=== PATIENT | male | born 1955 | race Caucasian/White ===

== ENCOUNTER 2018-04-22 08:43 | Inpatient (IN) | payer OTHER ==
[2018-04-22] MEDS ORDERED: NS 0.9% 1000 ML** 1,000 ML IV ONE (08:50)
[2018-04-22] MEDS ORDERED: Aspirin 81 mg CHEW TAB* 81 MG TAB.CHEW PO ONE (08:50)
--- NOTE | 2018-04-22 09:00 | ED ---
HPI Chest Pain - HPI Summary HPI Summary: A 63 y/o M presents to ED with c/o constant L-anterior CP onset 04/20/18 at 0030 that woke him from sleep. The pain is described as sharp, tight, pressured, crushing. It radiates to his neck, L shoulder and down the LUE. The pain is currently 8 out of 10 at bedside, but worsens at times. He took two Advil MANAGER AEROSPACE. He states the CP feels like a pulled muscle but he denies doing so. He denies exerting himself during the day of onset. Aggravating factor: position. He states exertion does not aggravate the pain. Denies diaphoresis, SOB, palpitations, n/v/d, urinary and bowel changes at bedside. No PMHx of DM, HTN, GERD, COPD, asthma. No family hx of [place], cardiac issues. Pt is a smoker. Denies recreational drug use. He denies medication other than Viagra, which he last took a week ago. At 0905: Dr. Starr, cardiology, present at bedside. - History of Current Complaint Chief Complaint: EDChestPainROMI Time Seen by Provider: 04/22/18 08:50 Hx Obtained From: Patient Onset/Duration: Started Days Ago, Atraumatic, Still Present Time of Onset: 00:30 - on 04/20/18 Timing: Constant Initial Severity: Moderate Current Severity: Severe Pain Intensity: 8 Pain Scale Used: 0-10 Numeric Chest Pain Location: Left Anterior Chest Pain Radiates: Yes Chest Pain Radiates To:: Shoulder - L, Arm - L, Neck Character: Crushing, Pressure/Squeezing, Sharp/Stabbing, Tightness Aggravating Factor(s): Position, Other: - exertion does not aggravate the CP. Associated Signs and Symptoms: Negative: Shortness of Breath, Diaphoresis, Nausea, Palpitations, Vomiting, Other: - neg: diarrhea, urinary and bowel changes - Allergy/Home Medications Allergies/Adverse Reactions: Allergies Allergy/AdvReac Type Severity Reaction Status Date / Time No Known Allergies Allergy Verified 04/22/18 08:49 Home Medications: Home Medications Sildenafil Citrate 100 mg PO DAILY PRN 04/22/18 [History Confirmed 04/22/18] PMH/Surg Hx/FS Hx/Imm Hx Previously Healthy: Yes Endocrine/Hematology History: Denies: Hx Diabetes Cardiovascular History: Denies: Hx Hypertension Respiratory History: Denies: Hx Asthma, Hx Chronic Obstructive Pulmonary Disease (COPD) GI History: Denies: Hx Gastroesophageal Reflux Disease Infectious Disease History: No Infectious Disease History: Denies: Traveled Outside the US in Last 30 Days - Family History Known Family History: Negative: Cardiac Disease - no MIs in family Family History: Parents in 80s. - Social History Occupation: Employed Full-time Lives: With Family Hx Tobacco Use: Yes Review of Systems Negative: Skin Diaphoresis Positive: Chest Pain. Negative: Palpitations Negative: Shortness Of Breath Negative: Vomiting, Diarrhea, Nausea, Other - neg: bowel changes Negative: dysuria, hematuria All Other Systems Reviewed And Are Negative: Yes Physical Exam - Summary Physical Exam Summary: Appearance: Well appearing, mild distress, smells of smoke Skin: warm, dry, reflects adequate perfusion Head/face: normal Eyes: EOMI, EVERARDO ENT: mucous membranes moist Neck: supple, non-tender Respiratory: CTA, breath sounds present Cardiovascular: RRR, pulses symmetrical Abdomen: non-tender, soft Bowel Sounds: present Musculoskeletal: normal, strength/ROM intact, no edema Neuro: normal, sensory motor intact, A&Ox3 Triage Information Reviewed: Yes Vital Signs On Initial Exam: Initial Vitals Temp Pulse Resp BP Pulse Ox 97.6 F 90 16 136/92 96 04/22/18 08:46 04/22/18 08:46 04/22/18 08:46 04/22/18 08:46 04/22/18 08:46 Vital Signs Reviewed: Yes Diagnostics - Vital Signs Vital Signs Temp Pulse Resp BP Pulse Ox 04/22/18 08:46 97.6 F 90 16 136/92 96 - Laboratory Result Diagrams: 04/22/18 09:05 04/22/18 09:05 Lab Statement: Any lab studies that have been ordered have been reviewed, and results considered in the medical decision making process. - Radiology CXR Radiology Interpretation Completed By: Radiologist Summary of Radiographic Findings: IMPRESSION: No active cardiopulmonary dz is noted. ED provider has reviewed this report. - EKG 0857 Cardiac Rate: NL - 80 bpm EKG Rhythm: Sinus Rhythm Summary of EKG Findings: 1mm ST elevation in lead I, II, and V6 with J point elevation. No reciprocal changes. STEMI. Chest Pain Course/Dx - Course Course Of Treatment: Nurse's notes reviewed. Patient with crushing chest pain and ST changes on EKG. STEMI alert called on arrival. Patient given aspirin and Berlinta. Cardiology came to the ER. Chest x-ray negative. Patient taken emergently to Administrative Services Director. - Chest Pain Differential Diagnosis/HQI/PQRI: Acute [place], ACS, Angina, CHF, Chest Wall, GI Disease, Pulmonary Edema, Pulmonary Embolism - Diagnoses Provider Diagnoses: STEMI (ST elevation myocardial infarction) During the Visit The Following Alert/Code Occurred: STEMI - Called at 09:03 - Provider Notifications Discussed Care Of Patient With: Tennille Arguello - cardio Time Discussed With Above Provider: 09:08 Instructed by Provider To: Other - Send to cardiac cath lab radiology technologist - Critical Care Time Critical Care Time: 30-74 min - 30 minutes. CCT is EXCLUSIVE of separately billable procedures. Discharge - Sign-Out/Discharge Documenting (check all that apply): Patient Departure - CUSTOMER EXPERIENCE ANALYST All imaging exams completed and their final reports reviewed: Yes - Discharge Plan Condition: Guarded Disposition: ADMITTED TO [facility] - Billing Disposition and Condition Condition: GUARDED Disposition: Admitted to [facility] - Attestation Statements Document Initiated by Scribe: Yes Documenting Scribe: Kashif Ruff Provider For Whom Scribe is Documenting (Include Credential): Dr. Guille Mcnulty MD Scribe Attestation: Kashif Chavez scribed for Dr. Guille Mcnulty MD on 04/22/18 at 1104. Scribe Documentation Reviewed: Yes Provider Attestation: The documentation as recorded by the Kashif mckeon accurately reflects the service I personally performed and the decisions made by , Dr. Guille Mcnulty MD Status of Scribe Document: Viewed
[2018-04-22] MEDS ORDERED: Aspirin 81 mg CHEW TAB* 81 MG TAB.CHEW ONE (09:04)
[2018-04-22] MEDS ORDERED: Heparin VIAL(*) 5000 UNITS/ML VIAL (FIVE THOUSAND) ONE (09:05)
[2018-04-22] MEDS ORDERED: Ticagrelor* 90 MG TAB PO ONE ×2 (09:05→09:06)
[2018-04-22] MEDS ORDERED: Heparin for STEMI(*) 5,000 UNITS/ML 1 ML VIAL IV ONE (09:06)
[2018-04-22] MEDS ORDERED: Nitroglycerin TAB 0.4 MG* 0.4 MG TAB SL ONE (09:06)
[2018-04-22] MEDS ORDERED: nitroGLYCERIN DRIP* 25,000 MCG in PREMIX* 0 ML IV ONE (09:06)
[2018-04-22] MEDS ORDERED: Heparin(*) 1000 UNIT/ML 10 ML VIAL CATH LAB IV ONE (09:07)
[2018-04-22] MEDS ORDERED: Heparin 2 UNITS/ML IVPREMIX* 3,000 ML IV ONE (09:07)
[2018-04-22] MEDS ORDERED: Lidocaine 1% INJ* 10 MG/ML 30 ML SDV ONE (09:07)
[2018-04-22] MEDS ORDERED: VERAPAMIL 2.5 MG/ML 2 ML VIAL ** 5 mg/2 ml ONE (09:07)
[2018-04-22] MEDS ORDERED: Iohexol 350 (CONTRAST) 200 ML MDV IV ONE ×3 (09:07→10:06)
[2018-04-22] MEDS ORDERED: Midazolam* 1 MG/ML 10 ML VIAL (10 MG) ONE ×2 (09:07→09:23)
[2018-04-22] MEDS ORDERED: nitroGLYCERIN DRIP* 25,000 MCG/250 ML BTL ONE (09:07)
[2018-04-22] MEDS ORDERED: fentaNYL* 50 MCG/ML 2 ML VIAL (100 MCG VIAL) ONE (09:07)
[2018-04-22 09:16] LABS: ABS Basophils 0 10^3/ul (0-0.2); ABS Eosinophils 0.1 10^3/ul (0-0.6); ABS Lymphocytes 4.8 10^3/ul (1.0-4.8); ABS Monocytes 1.1 10^3/ul (0-0.8); ABS Neutrophils 6.3 10^3/ul (1.5-7.7); ABS Nucleated RBC 0 10^3/ul; Eosinophil % 0.5 %; Hematocrit 48 % (42-52); Hemoglobin 16.3 g/dl (14.0-18.0); Lymphocyte % 39.1 %; Mean Corpuscular HGB Conc 34 g/dl (31-36); Mean Corpuscular Hemoglobin 31 pg (27-31); Mean Corpuscular Volume 91 fL (80-94); Mean Platelet Volume 8.7 fL (7.4-10.4); Nucleated Red Blood Cells % 0.3; Platelet Count 176 10^3/ul (150-450); Red Cell Distribution Width 14 % (10.5-15); White Blood Count 12.3 10^3/ul (3.5-10.8)
[2018-04-22] MEDS ORDERED: Morphine INJ* 10 MG/ML 1 ML CARPUJECT ONE (09:23)
[2018-04-22 09:35] LABS: Activated Partial Thrombo Time 31.2 seconds (26.0-36.3); Albumin 4.2 g/dL (3.2-5.2); Albumin/Globulin Ratio 1.4 (1-3); BUN/Creatinine Ratio 17.1 (8-20); Calcium 9.6 mg/dL (8.6-10.3); EGFR African American 126.2 (>60); EGFR Non-African American 104.3 (>60); Globulin 3.1 g/dL (2-4); INR 1.02 (0.77-1.02); Potassium 4.2 mmol/L (3.5-5.0); Total Bilirubin 1.1 mg/dL (0.2-1.0); Total Protein 7.3 g/dL (6.4-8.9)
[2018-04-22 09:37] LABS: Troponin I 0.01 ng/mL (<0.04)
--- NOTE | 2018-04-22 10:55 | HP ---
CC: Dr. Arguello * ADMISSION HISTORY AND PHYSICAL: DATE OF ADMISSION: 04/22/18. INDICATIONS FOR ADMISSION: STEMI. HISTORY OF PRESENT ILLNESS: The patient is a 63-year-old gentleman with a very little past medical history who has been having chest pain since last night. The patient states he described it is a heaviness and his chest occasionally radiating up into a jaw and shoulder, had been on and off all night long. The patient came to the emergency room this morning. In the emergency room, he had an EKG, which demonstrated ST segment elevations in leads I and aVL with OR depressions. No reciprocal changes. His chest pain, however, is quite typical. PAST MEDICAL HISTORY: Unremarkable. PAST SURGICAL HISTORY: None. OUTPATIENT MEDICATIONS: Viagra. ALLERGIES: None. FAMILY HISTORY: Family history was not obtained as it was an emergency. SOCIAL HISTORY: He is . He smokes cigarettes, I am not exactly sure of how much. He denies any regular exercise. PHYSICAL EXAMINATION VITAL SIGNS: On physical exam, height is 5 feet 9 inches, weight 220 pounds, blood pressure 143/99, temperature 97.6, heart rate is 82, respiratory rate is 16. HEENT: Sclerae are anicteric. Oropharynx is pink without erythema. Carotids are 2+ without bruits. NECK: JVD is normal. Thyroid is normal. LUNGS: Clear to auscultation bilaterally. There is no dullness to percussion. CARDIAC EXAM: S1, S2 without any murmurs, rubs or gallops. ABDOMEN: Obese, soft, nontender, nondistended with normoactive bowel sounds. EXTREMITIES: Show no edema. He has 2+ pulses throughout. NEURO: The patient is awake and alert and oriented. He moves all 4 extremities equally. DIAGNOSTIC STUDIES/LAB DATA: CBC within normal limits. Chemistries are still pending. EKG as described above. Chest x-ray is normal. There is no mediastinal widening. There is no infiltrates. IMPRESSION: This is a 63-year-old gentleman with a very little past medical history, who came to the emergency room with typical anginal type symptoms. His EKG shows ST segment elevations in leads I and aVL. He does have some degree of OR depression. There are no reciprocal changes. PLAN/RECOMMENDATIONS: Given the patients' age, history of smoking, the patient is very likely to have coronary artery disease. Recommendation is that the patient to undergo cardiac catheterization. The patient was given 4000 units of heparin in the emergency room and transported up to the cardiac landscaping and groundskeeping laborer. The patient did get an aspirin in the emergency room. Further recommendations pending the results of his cardiac catheterization. [id number]/[facility] #: [id number] MTDD
[2018-04-22] MEDS ORDERED: Nitroglycerin TAB 0.4 MG* 0.4 MG TAB SL PRN (11:17)
[2018-04-22] MEDS ORDERED: Acetaminophen TAB* 325 MG PO PRN (11:17)
[2018-04-22] MEDS ORDERED: NS 0.9% 1000 ML** 400 ML IV SCH (11:30)
[2018-04-22 14:06] LABS: HDL Cholesterol 43.6 mg/dL
[2018-04-22 14:22] LABS: TSH (Thyroid Stimulating Horm) 1.52 mcIU/mL (0.34-5.60)
[2018-04-22] MEDS: Metoprolol Tartrate TAB* 25 MG PO SCH ×2 (14:28→20:05)
[2018-04-22] MEDS: Atorvastatin* 80 MG TAB PO SCH (17:31)
[2018-04-22] MEDS ORDERED: oxyCODONE/Acetamin 5/325 MG* TAB PO PRN (17:41)
[2018-04-22] MEDS: Ticagrelor* 90 MG TAB PO SCH (20:05)
[2018-04-23] MEDS: Metoprolol Tartrate TAB* 25 MG PO SCH (03:53)
[2018-04-23 05:36] LABS: BUN/Creatinine Ratio 17.1 (8-20); Blood Urea Nitrogen 13 mg/dL (6-24); CO2 Carbon Dioxide 24 mmol/L (22-32); Calcium 9.1 mg/dL (8.6-10.3); Chloride 105 mmol/L (101-111); EGFR African American 126.2 (>60); EGFR Non-African American 104.3 (>60); Glucose 107 mg/dL (70-100); Sodium 135 mmol/L (135-145)
[2018-04-23 05:41] LABS: Anion Gap 6 mmol/L (2-11)
[2018-04-23] MEDS: Ticagrelor* 90 MG TAB PO SCH ×2 (08:26→22:10)
[2018-04-23] MEDS: Aspirin 81 mg CHEW TAB* 81 MG TAB.CHEW PO SCH (08:26)
[2018-04-23 10:24] LABS: Troponin I 0.24 ng/mL (<0.04)
[2018-04-23] MEDS: Atorvastatin* 80 MG TAB PO SCH (16:33)
--- NOTE | 2018-04-23 21:22 | CATH ---
CC: Dr. Escalante; Dr. Tennille Arguello * STENT REPORT: DATE OF PROCEDURE: 04/22/18 - ROOM #444 PRIMARY CARE PHYSICIAN: Dr. Escalante at [facility]. PROCEDURES: Right radial artery access; bilateral selective coronary cineangiography; left heart catheterization; left ventriculography; stent placement, RPDA, 2.0 x 12 Resolute [place] drug-eluting stent. HISTORY: A 63-year-old male presenting with acute ST-elevation infarct with injury current in I and aVL as well as inferiorly. Symptoms are somewhat atypical with pleural-pericardial component, he has had chest pain intermittently for more than 24 hours, first troponin is not elevated. The EKG changes are new. PROCEDURE ACCESS: Right radial artery sheath 6F Slender. MEDICATIONS: 1. Subcu lidocaine. 2. IV Versed. 3. IV fentanyl. 4. Nitroglycerin 400 mcg IC. 5. Radial cocktail with nitroglycerin 300 mcg, verapamil 3 mg. 6. Heparin 9000 units IV. DIAGNOSTIC CATHETERS: 5FL4, 5F TIG4, 5F pigtail. HEMODYNAMICS: AO 108/71, LV 100/14, no aortic valve gradient on pullback. ANGIOGRAPHY: RCA. The RCA is large, dominant, with scattered mild luminal irregularity. The PDA is large, in its proximal third, the PDA continuation has a 99% stenosis with distal SHANNA 2 flow. More distally, the RCA supplies 2 large posterolaterals without stenosis. Left main. The left main is very large, has no stenosis. LAD. The LAD is large, extends past the apex, has scattered proximal luminal irregularity without significant stenosis, it supplies several small diagonals. There is a transeptal collateral to the distal half of the RPDA. Circumflex. The circumflex is large, not dominant with a large bifurcated marginal, ends with a small posterolateral, the circumflex has no significant stenosis. LV gram: There is very localized mid inferior wall mild hypokinesis, estimated LVEF normal at 55% to 60%. RPDA REVASCULARIZATION: Guide 6FR4, wire 14 BMW, 14 PT Graphix. It was difficult to cross the occlusion point without balloon support, I then placed a long PT Graphix wire in the PDA to allow an end-hole catheter for distal injection to ensure intraluminal position before the stent was deployed. A 2 x 12 Resolute [place] drug-eluting stent was deployed in the RPDA, 12 atmospheres 60 seconds. Predilatation was required several times before the stent could be positioned. With stent placement, chest pain markedly improved, as did ST elevation. CONCLUSION: 1. Single-vessel disease RPDA with high-grade PDA stenosis with epsd-ba-yyxoa collaterals, with stuttering infarct pattern, inferior and high lateral injury current, successful revascularization with MARCIN. 2. Normal LV systolic function with mild regional wall motion abnormality. 3. Normal left-sided hemodynamics. 4. Successful right radial artery access. [id number]/[facility] #: [id number] [facility]
[2018-04-23] MEDS: Metoprolol Tartrate TAB* 50 mg PO SCH (22:10)
[2018-04-24 07:58] VITALS: BP 116/67
[2018-04-24] MEDS: Ticagrelor* 90 MG TAB PO SCH (08:11)
[2018-04-24] MEDS: Aspirin 81 mg CHEW TAB* 81 MG TAB.CHEW PO SCH (08:11)
[2018-04-24] MEDS: Metoprolol Tartrate TAB* 50 mg PO SCH (08:11)
--- NOTE | 2018-04-24 12:18 | DS ---
CC: Dr. Escalante in Telephone; Dr. Tennille Arguello DISCHARGE SUMMARY: DATE OF ADMISSION: 04/22/18 DATE OF DISCHARGE: 04/24/18 PRIMARY CARE PHYSICIAN: Dr. Escalante. DISCHARGE DIAGNOSES: 1. Acute inferolateral ST-elevation infarct. 2. Tobacco use. 3. Dyslipidemia. CONDITION ON DISCHARGE: Stable. PROCEDURES: Cardiac cath; stent placement, RPDA via the right radial 2.0 x 12 mm Resolute [place] drug- eluting stent; telemetry. DISCHARGE MEDICATIONS: 1. Aspirin 81 mg daily. 2. Lipitor 80 mg daily. 3. Metoprolol 50 mg b.i.d. 4. Nicotine patch 14 mg q.24 hours. 5. Nitroglycerin 0.4 sublingual p.r.n. 6. Brilinta 90 b.i.d. or equivalent for a minimum of 1 year without interruption. ACTIVITY: No strenuous exertion, to minimize right hand lifting 20 pounds for 3 days, wound care and shower only for 3 days. FOLLOWUP: Follow up with Dr. Starr next week for wrist check and with Dr. Escalante as before. HISTORY: See the H and P. DIAGNOSTIC STUDIES/LAB DATA: Post PCI BMP remain stable with a creatinine of 0.76. His troponin peak ed at 0.33 on the with subsequent decrease. His EKG demonstrated resolution of the injury curre nt in the inferior and high lateral leads. HOSPITAL COURSE: He presented with an ST-elevation infarct with somewhat atypical symptoms with stut tering, pleural-pericardial chest pain for at least 24 hours, first troponin was negative. Subsequen t troponin peaked at 0.33 consistent with a very small infarct. He underwent emergent catheterizatio n which demonstrated a culprit RPDA near occlusion with left to right collaterals which was revascula rized and stented with 2 mm drug-eluting stent with good angiographic result. Post revascularization, he had no right hand issues, has not had recurrence of chest pain, heart failure symptoms or arrhyth mias. He is ambulatory, has received full discharge instructions. There was some question of insura txe coverage for Brilinta, hence, we gave him a 1 month supply at discharge, he will discuss with Dr. Starr next week and with Dr. Escalante; continuation of Brilinta or switching to Plavix depending on hi s insurance coverage. He understands the importance of uninterrupted dual antiplatelet therapy for a minimum of 12 months. He was advised to resume work next Sunday, received full discharge instructio martell. [id number]/[facility] #: [id number]
[2018-04-25] MEDS ORDERED: Nicotine PATCH 14 MG/24 HR* PATCH TRANSDERM SCH (09:00)
[2018-04-25] MEDS ORDERED: Nicotine Patch Removal NOTE PATCH OFF SCH (21:00)
--- NOTE | 2018-04-30 19:47 | HP ---
HISTORY AND PHYSICAL: DATE OF ADMISSION: ADDENDUM: REVIEW OF SYSTEMS: The patient denies any fevers or chills. He denies any changes in bowel or bladder habits. Negative in change in weight. Other 12- point review is unremarkable. [id number]/[facility] #: [id number] MTDD
== END 2018-04-24 12:10 | disposition home or self-care (01) | DRG 247 ==
LOC: ED 08:43 → CHICATH 09:12 → ICU 11:23 → MEDTELE 04-23 11:05
PROVIDERS: ADMIT Internal Medicine Cardiovascular Disease; ATTEND Internal Medicine Cardiovascular Disease
PROC: 027034Z Dilation of Coronary Artery, One Artery with Drug-eluting Intraluminal Device, Percutaneous Approach (ICD-10-PCS; 2018-04-22)
PROC: B2111ZZ Fluoroscopy of Multiple Coronary Arteries using Low Osmolar Contrast (ICD-10-PCS; 2018-04-22)
PROC: B2151ZZ Fluoroscopy of Left Heart using Low Osmolar Contrast (ICD-10-PCS; 2018-04-22)
PROC: 4A023N7 Measurement of Cardiac Sampling and Pressure, Left Heart, Percutaneous Approach (ICD-10-PCS; principal; 2018-04-22 09:00)
DX: I21.19 ST elevation (STEMI) myocardial infarction involving other coronary artery of inferior wall (principal); E78.5 Hyperlipidemia, unspecified; F17.210 Nicotine dependence, cigarettes, uncomplicated; I25.10 Atherosclerotic heart disease of native coronary artery without angina pectoris; Z79.82 Long term (current) use of aspirin
CPT/HCPCS: 36415; 71045; 80048; 80053; 80061; 83605; 83721; 83880; 84443; 84484; 85025; 85347; 85379; 85610; 85730; 87641; 93005; 99285; 99406; A9270-GY; C1725; C1769; C1874; C1887; C9606-RC; J1644; J2250; J2270; J3010

== ENCOUNTER 2019-02-18 13:18 | Emergency (ER) | payer OTHER ==
--- NOTE | 2019-02-18 14:16 | ED ---
HPI Chest Pain - HPI Summary HPI Summary: Patient is a 64 y/o M presenting to the ED for a chief complaint of chest pain that began at 04:00 on 02/18/19. Patient states the chest pain is left-sided, radiating to the left shoulder. The chest pain is described as tightness and the patient rates the pain as 3/10 in severity. He admits SOB, occasional lightheadedness, and fatigue for the last 3-4 weeks. Patient denies nausea, vomiting, or near syncope. Patient denies any aggravating or alleviating factors. PMHx is significant for hypercholesterolemia, but denies hypertension or diabetes mellitus. PSHx is significant for cardiac stent placement in April 2018. Patient sees Dr. Starr. Patient denies any tobacco, alcohol, or drug use. Medications reviewed. - History of Current Complaint Chief Complaint: EDChestPainROMI Time Seen by Provider: 02/18/19 14:01 Hx Obtained From: Patient Onset/Duration: Started Hours Ago, Atraumatic, Still Present Timing: Intermittent Initial Severity: Mild Current Severity: Mild Pain Intensity: 3 Pain Scale Used: 0-10 Numeric Chest Pain Location: Left Anterior Chest Pain Radiates: Yes Chest Pain Radiates To:: Shoulder - Left Character: Tightness Aggravating Factor(s): Nothing Alleviating Factor(s): Nothing Associated Signs and Symptoms: Positive: Chest Pain - Left-sided, Shortness of Breath, Lightheadedness - Occasional, Other: - Negative near syncope; positive fatigue. Negative: Nausea, Vomiting - Additional Pertinent History Primary Care Physician: [id number] - Allergy/Home Medications Allergies/Adverse Reactions: Allergies Allergy/AdvReac Type Severity Reaction Status Date / Time No Known Allergies Allergy Verified 02/18/19 13:35 Home Medications: Home Medications Atorvastatin* [Lipitor*] 40 mg PO DAILY 02/18/19 [History Confirmed 02/18/19] Sildenafil (NF) [Viagra (NF)] 100 mg PO DAILY PRN 02/18/19 [History Confirmed ] PMH/Surg Hx/FS Hx/Imm Hx Previously Healthy: Yes Endocrine/Hematology History: Denies: Hx Diabetes Cardiovascular History: Reports: Hx Hypercholesterolemia Denies: Hx Hypertension, Other Cardiovascular Problems/Disorders - past stress test clean Respiratory History: Denies: Hx Asthma, Hx Chronic Obstructive Pulmonary Disease (COPD) GI History: Denies: Hx Gastroesophageal Reflux Disease Sensory History: Reports: Hx Contacts or Glasses Denies: Hx Legally Blind, Hx Deafness, Hx Hearing Aid Opthamlomology History: Reports: Hx Contacts or Glasses Denies: Hx Legally Blind EENT History: Denies: Hx Deafness - Surgical History Surgical History: Yes Surgery Procedure, Year, and Place: Stent placement in April 2018 Infectious Disease History: No Infectious Disease History: Denies: Traveled Outside the [place] in Last 30 Days - Family History Known Family History: Negative: Cardiac Disease - no MIs in family Family History: Parents in 80s. - Social History Occupation: Employed Full-time Lives: With Family Alcohol Use: None Hx Substance Use: No Substance Use Type: Reports: None Hx Tobacco Use: Yes Smoking Status (MU): Former Smoker Type: Cigarettes Amount Used/How Often: 1 ppd Have You Smoked in the Last Year: Yes Review of Systems Positive: Fatigue Positive: Chest Pain - Left-sided Positive: Shortness Of Breath Negative: Vomiting, Nausea Positive: Arthralgia - Left shoulder that radiates from chest Neurological: Other - Negative near syncope; positive occasional lightheadedness All Other Systems Reviewed And Are Negative: Yes Physical Exam - Summary Physical Exam Summary: VITAL SIGNS: Reviewed. GENERAL: Patient is a well-developed and nourished MALE who is lying comfortable in the stretcher. Patient is not in any acute respiratory distress. HEAD AND FACE: No signs of trauma. No ecchymosis, hematomas or skull depressions. No sinus tenderness. EYES: PERRLA, EOMI x 2, No injected conjunctiva, no nystagmus. EARS: Hearing grossly intact. Ear canals and tympanic membranes are within normal limits. MOUTH: Oropharynx within normal limits. NECK: Supple, trachea is midline, no adenopathy, no JVD, no carotid bruit, no c- spine tenderness, neck with full ROM. CHEST: Symmetric, no tenderness at palpation. LUNGS: Clear to auscultation bilaterally. No wheezing or crackles. CVS: Regular rate and rhythm, S1 and S2 present, no murmurs or gallops appreciated. ABDOMEN: Soft, non-tender. No signs of distention. No rebound, no guarding, and no masses palpated. Bowel sounds are normal. EXTREMITIES: FROM in all major joints, no edema, no cyanosis or clubbing. NEURO: Alert and oriented x 3. No acute neurological deficits. Speech is normal and follows commands. SKIN: Dry and warm. Triage Information Reviewed: Yes Vital Signs On Initial Exam: Initial Vitals Temp Pulse Resp BP Pulse Ox 98.1 F 71 20 139/75 96 02/18/19 13:33 02/18/19 13:33 02/18/19 13:33 02/18/19 13:33 02/18/19 13:33 Vital Signs Reviewed: Yes Procedures - Sedation Patient Received Moderate/Deep Sedation with Procedure: No Diagnostics - Vital Signs Vital Signs Temp Pulse Resp BP Pulse Ox 02/18/19 13:33 98.1 F 71 20 139/75 96 - Laboratory Result Diagrams: 02/18/19 14:53 02/18/19 14:53 Lab Statement: Any lab studies that have been ordered have been reviewed, and results considered in the medical decision making process. - Radiology Chest X-ray Radiology Interpretation Completed By: Radiologist Summary of Radiographic Findings: Chest X-ray IMPRESSION: NO ACTIVE CARDIOPULMONARY DISEASE IS NOTED. Reviewed and interpreted by Dr. Busby. - EKG 13:20 Cardiac Rate: NL - 75 BPM EKG Rhythm: Sinus Rhythm ST Segment: Normal Ectopy: None Summary of EKG Findings: EKG at 13:20 shows 75 BPM with normal sinus rhythm, no ST elevations, no STEMI. Reviewed and interpreted by Dr. Busby. Chest Pain Course/Dx - Course Assessment/Plan: The patient is a 64-year-old male who presents to the emergency department with chief complaint of chest pain. Blood work is without any significant abnormality except for WBCs of 12.1. Troponin 0.00. EKG shows a normal sinus rhythm without any ST elevation. In the ED course, the patient was given aspirin, however he declines the nitroglycerin since the patient is taking Cialis. Heart score is equal to 3, which is a low score. Second troponin is also 0.00. At this point the patients pain has resolved and he is no longer in any pain. Since the heart score is only 3, I believe that the patient can be discharged home and follow up with his primary care physician. Nonetheless, the patient was instructed to return to the emergency department if any of the symptoms return or if he develops any other symptoms. The patient understands and agrees. I discussed all of the physical exam findings and test results with the patient. Patient was instructed to return to the emergency room immediately if any of the symptoms return or worsen. Plan of care was discussed with the patient who understands and agrees. All questions were answered at the patient's satisfaction. There were no further complaints or concerns. Lung exam before discharge: CTA B/L. Good air exchange. No wheezing or crackles heard. CVS: S1 and S2 present. No murmurs appreciated. Patient is alert and oriented x 3. Patient is hemodynamically stable. Patient will be discharged home to follow up with his PCP in the next 2-3 days. - Diagnoses Provider Diagnoses: Chest pain Discharge ED - Sign-Out/Discharge Documenting (check all that apply): Patient Departure - Discharge - Discharge Plan Condition: Stable Disposition: HOME Patient Education Materials: Chest Pain (ED) Referrals: Seymour Escalante MD [Primary Care Provider] - Additional Instructions: FOLLOW UP WITH YOUR PRIMARY CARE PROVIDER WITHIN 2-3 DAYS. RETURN TO THE ED FOR ANY WORSENING OR NEW SYMPTOMS. - Billing Disposition and Condition Condition: STABLE Disposition: Home - Attestation Statements Document Initiated by Yvonneibe: Yes Documenting Scribe: Debo De La Vega Provider For Whom Jose Armando is Documenting (Include Credential): Gumaro Busby MD Scribe Attestation: Debo Chavez scribed for Gumaro Busby MD on 02/18/19 at 2059. Scribe Documentation Reviewed: Yes Provider Attestation: The documentation as recorded by the Debo mckeon accurately reflects the service I personally performed and the decisions made by , Gumaro Busby MD Status of Scribe Document: Viewed
[2019-02-18] MEDS ORDERED: Aspirin 81 mg CHEW TAB* 81 MG TAB.CHEW PO ONE (14:43)
[2019-02-18 15:14] LABS: Hematocrit 48 % (42-52); Mean Corpuscular HGB Conc 34 g/dL (31-36); Mean Corpuscular Hemoglobin 31 pg (27-31); Mean Corpuscular Volume 91 fL (80-94); Mean Platelet Volume 9.2 fL (7.4-10.4); Platelet Count 164 10^3/uL (150-450); Red Cell Distribution Width 14 % (10-15); White Blood Count 12.1 10^3/uL (3.5-10.8)
[2019-02-18 15:23] LABS: Albumin 4.1 g/dL (3.2-5.2); Calcium 9.1 mg/dL (8.6-10.3); Magnesium 2.1 mg/dL (1.9-2.7); Total Bilirubin 0.4 mg/dL (0.2-1.0)
[2019-02-18 15:25] LABS: Activated Partial Thrombo Time 31.9 seconds (26.0-38.0); INR 1.01 (0.82-1.09)
[2019-02-18 15:29] LABS: Albumin/Globulin Ratio 1.7 (1-3); BUN/Creatinine Ratio 12.5 (8-20); EGFR African American 118.5 (>60); Globulin 2.4 g/dL (2-4); Total Protein 6.5 g/dL (6.4-8.9)
[2019-02-18 15:31] LABS: CKMB ng/mL 1.4 ng/mL (0.6-6.3)
[2019-02-18 15:33] LABS: Potassium 4.4 mmol/L (3.5-5.0)
[2019-02-18 15:47] LABS: ABS Basophils 0.1 10^3/ul (0-0.2); ABS Eosinophils 0.1 10^3/ul (0-0.6); ABS Lymphocytes 7.4 10^3/ul (1.0-4.8); ABS Monocytes 0.6 10^3/ul (0-0.8); ABS Neutrophils 3.9 10^3/ul (1.5-7.7); ABS Nucleated RBC 0.1 10^3/ul; Eosinophil % 1.2 %; Lymphocyte % 61.4 %; Nucleated Red Blood Cells % 0.7
[2019-02-18 16:08] LABS: Urine Appearance Clear; Urine Bilirubin Negative (Negative); Urine Blood Negative (Negative); Urine Color Straw; Urine Glucose Negative (Negative); Urine Ketones Negative (Negative); Urine Nitrite Negative (Negative); Urine Protein Negative (Negative); Urine Specific Gravity 1.005 (1.010-1.030); Urine Urobilinogen Negative (Negative)
[2019-02-18 18:53] VITALS: BP 133/70
== END 2019-02-18 18:32 | disposition home or self-care (01) ==
LOC: ED 13:18
DX: R07.89 Other chest pain (principal); R06.02 Shortness of breath; R42 Dizziness and giddiness; R53.83 Other fatigue; E78.00 Pure hypercholesterolemia, unspecified; Z95.5 Presence of coronary angioplasty implant and graft; Z87.891 Personal history of nicotine dependence
CPT/HCPCS: 36415; 71045; 80053; 81003; 82550; 82553; 83605; 83735; 83880; 84484; 85025; 85060; 85610; 85730; 93005; 99284; A9270-GY